=== PATIENT | male | born 1990 | race Two or more races ===

== ENCOUNTER 2016-10-28 12:59 | Emergency (ER) | payer MEDICAID, OTHER ==
[~2016-10-28] VITALS: Ht 172.7 cm; Wt 74.7 kg
[2016-10-28 13:06] VITALS: BP 104/62; PULSE 79; RESP 16; TEMP 98.3; O2SAT 94
--- NOTE | 2016-10-28 13:56 | PD ---
HPI Chief Complaint: GI Complaint Time Seen by Provider: 13:52 Travel History International Travel<30 days: No Contact w/Intl Traveler<30days: No Traveled to known affect area: No History of Present Illness HPI Patient presents with 3-4 days of nausea vomiting and diarrhea. No sick contacts. Denies blood per stool or emesis. Denies any recent travel, antibiotics, camping or new foods. Denies any chest pain shortness of breath or urinary symptoms. Denies fever. PFSH Past Medical History Asthma: Yes Bipolar Disorder: Yes Diminished Hearing: No Influenza Vaccination: Yes Past Surgical History Surgical History: No Previous Surgery Ear Surgery: Yes (TUBES IN EARS ) Other Surgery: Yes (PULMONARY SURGERY AN INFANT, ADENOIDECTOMY ) Social History Alcohol Use: Yes (OCCASIONALLY ) Tobacco Use: Yes (1+ PPD ) Substance Use: Yes Allergies-Medications (Allergen,Severity, Reaction): Coded Allergies: No Known Allergies (Verified , 10/28/16) Reported Meds & Prescriptions Reported Meds & Active Scripts Active Zofran Odt (Ondansetron Odt) 4 Mg Tab 4 Mg SL Q6HR PRN Levsin (Hyoscyamine Sulfate) 0.125 Mg Tab 0.125 Mg PO Q4H PRN Review of Systems General / Constitutional: No: Fever Eyes: No: Visual changes HENT: No: Headaches Cardiovascular: No: Chest Pain or Discomfort Respiratory: No: Shortness of Breath Gastrointestinal: Positive: Nausea, Vomiting, Diarrhea, No: Abdominal Pain Genitourinary: No: Dysuria Musculoskeletal: No: Pain Skin: No Rash Neurologic: No: Weakness Psychiatric: No: Depression Endocrine: No: Polydipsia Hematologic/Lymphatic: No: Easy Bruising Physical Exam Narrative GENERAL: Well-nourished, well-developed patient. SKIN: Focused skin assessment warm/dry. HEAD: Normocephalic. EYES: No scleral icterus. No injection or drainage. NECK: Supple, trachea midline. No JVD or lymphadenopathy. CARDIOVASCULAR: Regular rate and rhythm without murmurs, gallops, or rubs. RESPIRATORY: Breath sounds equal bilaterally. No accessory muscle use. GASTROINTESTINAL: Abdomen soft, non-tender, nondistended. MUSCULOSKELETAL: No cyanosis, or edema. BACK: Nontender without obvious deformity. No CVA tenderness. Data Data Last Documented VS Vital Signs Date Time Temp Pulse Resp B/P Pulse Ox O2 Delivery O2 Flow Rate FiO2 10/28/16 13:06 98.3 79 16 104/62 94 Orders Dicyclomine Inj (Bentyl Inj) (10/28/16 14:00) Ondansetron Odt (Zofran Odt) (10/28/16 14:00) [facility] Medical Decision Making Medical Screen Exam Complete: Yes Emergency Medical Condition: Yes Differential Diagnosis Gastroenteritis, gastritis, colitis, food poisoning, C. difficile Narrative Course Assessment and plan discussed with patient at bedside. Provided Bentyl and Zofran. Tolerated fluid challenge. Diagnosis Primary Impression: Gastroenteritis Patient Instructions: General Instructions Additional Instructions: Rest fluids and a bland BRAT high-fiber diet, follow-up with PCP, work note for today and tomorrow please Med/Other Pt SpecificInfo: Prescription(s) given Scripts Ondansetron Odt (Zofran Odt)4 Mg Tab4 Mg SL Q6HR PRN (Nausea/Vomiting) #20 TAB Ref 0 Prov:Oneil Ramos MD 10/28/16 Hyoscyamine (Levsin)0.125 Mg Tab0.125 Mg PO Q4H PRN (diarrhea) #20 TAB Ref 0 Prov:Oneil Ramos MD 10/28/16 Disposition: 01 DISCHARGE HOME Condition: Good Oneil Ramos MD Oct 28, 2016 13:56
[2016-10-28] MEDS ORDERED: DICYCLOMINE HCL 20 MG/2 ML VIAL IM ONE (14:00)
[2016-10-28] MEDS ORDERED: ONDANSETRON ODT 4 MG TAB PO ONE (14:00)
[2016-10-28] MEDS ORDERED: ZOFR4TAB3 SL (14:40)
[2016-10-28] MEDS ORDERED: LEVS0.123 PO (14:40)
[2016-10-28 14:58] VITALS: BP 120/76
== END 2016-10-28 14:59 | disposition home or self-care (01) ==
LOC: PHED 12:59
DX: K52.9 Noninfective gastroenteritis and colitis, unspecified (principal); J45.909 Unspecified asthma, uncomplicated; F17.210 Nicotine dependence, cigarettes, uncomplicated
CPT/HCPCS: 96372; 99284; J0500

== ENCOUNTER 2017-02-14 10:24 | Emergency (ER) | payer SELFPAY ==
[~2017-02-14] VITALS: Ht 175.3 cm; Wt 72.5 kg
[2017-02-14 10:24] VITALS: BP 118/69; PULSE 89; RESP 20; TEMP 98.6; O2SAT 92
[~2017-02-14 10:24] MED LIST: LEVS0.123 PO; ZOFR4TAB3 SL
[2017-02-14] MEDS ORDERED: VENTAER INH (10:39)
[2017-02-14] MEDS ORDERED: predniSONE 50 MG TAB PO ONE (10:45)
--- NOTE | 2017-02-14 10:55 | PD ---
HPI Chief Complaint: Respiratory Symptoms Time Seen by Provider: 10:34 Travel History International Travel<30 days: No Contact w/Intl Traveler<30days: No Traveled to known affect area: No History of Present Illness HPI This is a 26-year-old male who has a history of asthma who presents to the emergency department with wheezing, shortness of breath and difficulty taking a deep breath, constant, worsening over the past several days. He has a history of asthma which stems from him inhaling amniotic fluid when he was a baby. He says he was hospitalized frequently as a child but not as an adult. He was seen yesterday at [facility] where he received some bronchodilator treatments and was discharged with a prescription for prednisone. He was unable to fill it because he gets his paycheck today but he did receive prednisone they are yesterday. He says he works at a [employer] and he is having difficulty working because he can get through a sentence without needing to breathe. He does smoke intermittently. He denies any fevers or chills and denies any rhinorrhea. He says he feels like he has a productive cough but can' t get it out. PFSH Past Medical History Asthma: Yes Bipolar Disorder: Yes Diabetes: No Diminished Hearing: No Respiratory: Yes (asthma) Tetanus Vaccination: > 5 Years Influenza Vaccination: Yes Past Surgical History Ear Surgery: Yes (TUBES IN EARS ) Other Surgery: Yes (PULMONARY SURGERY AN INFANT, ADENOIDECTOMY ) Social History Alcohol Use: Yes (OCCASIONALLY ) Tobacco Use: Yes (1+ PPD ) Substance Use: Yes Allergies-Medications (Allergen,Severity, Reaction): Coded Allergies: No Known Allergies (Verified , 02/14/17) Reported Meds & Prescriptions Reported Meds & Active Scripts Active Reported Ventolin Hfa 18 GM Inh (Albuterol Sulfate) 90 Mcg/Act Aer 2 Puff INH Q4H PRN Review of Systems Except as stated in HPI: all other systems reviewed are Neg Physical Exam Narrative GENERAL:Well appearing, no acute distress SKIN: Focused skin assessment warm and dry. HEAD: Atraumatic. Normocephalic. EYES: Pupils equal and round. No injection or drainage. ENT: Moist mucous membranes NECK: Trachea midline. CARDIOVASCULAR: Regular rate and rhythm. No murmur appreciated. RESPIRATORY: Diffuse wheezing, speaking full sentences. GASTROINTESTINAL: Abdomen soft, non-tender, nondistended. MUSCULOSKELETAL: No obvious deformities. NEUROLOGICAL: Awake and alert. No obvious cranial nerve deficits. Moving all extremities PSYCHIATRIC: Appropriate mood and affect; insight and judgment normal. Data Data Last Documented VS Vital Signs Date Time Temp Pulse Resp B/P Pulse Ox O2 Delivery O2 Flow Rate FiO2 02/14/17 10:30 85 20 92 Room Air 02/14/17 10:24 98.6 118/69 Orders Prednisone (Deltasone) (02/14/17 10:45) Albuterol Neb (Albuterol Neb) (02/14/17 10:45) Spacer / Device For Mdi (Spacer / Device (02/14/17 11:15) MDM Medical Decision Making Medical Screen Exam Complete: Yes Emergency Medical Condition: Yes Interpretation(s) Afebrile, no tachycardia, normotensive Differential Diagnosis Acute asthma exacerbation, pneumonia, status asthmaticus Narrative Course This is a 26-year-old male who presents to the emergency department with wheezing and shortness of breath. He has a history of asthma. He was placed on a monitor. Oxygen saturation was between 89 and 92%. He was given serial bronchodilator treatments and prednisone. His symptoms improved significantly and when I reassessed him he was no longer wheezing. I think he's safe for discharge. He was given a spacer here in the emergency department and urged to fill his prednisone prescription. He was instructed to return to the hospital if he feels worse. Diagnosis Primary Impression: Acute asthma exacerbation Qualified Code: J45.41 - Moderate persistent asthma with acute exacerbation Patient Instructions: General Instructions Departure Forms: Tests/Procedures, Work Release Enter return to work date: Feb 18, 2017 Additional Instructions: If you develop severe shortness of breath, chest pain, or difficulty breathing return to the emergency department. Use albuterol every 4 hours for the next 2 days. Then use as needed for wheezing. Complete your course of steroids. Follow up with your primary care physician in 2-3 days if your symptoms have not improved. Med/Other Pt SpecificInfo: No Change to Meds Disposition: 01 DISCHARGE HOME Condition: Stable Gabriela Morales MD Feb 14, 2017 10:55
[2017-02-14] MEDS: RESP: ALBUTEROL 2.5 MG/3 ML NEB (SCH) INH ×2 (10:57→10:58)
[2017-02-14] MEDS ORDERED: SPACER/DEVICE FOR MDI INH SCH (11:15)
== END 2017-02-14 12:23 | disposition home or self-care (01) ==
LOC: NEPD 10:24
DX: J45.41 Moderate persistent asthma with (acute) exacerbation (principal); F17.200 Nicotine dependence, unspecified, uncomplicated; Z87.09 Personal history of other diseases of the respiratory system; Z86.59 Personal history of other mental and behavioral disorders
CPT/HCPCS: 94640; 94664; 99283; J7512; J7613

== ENCOUNTER 2017-05-08 10:37 | Emergency (ER) | payer SELFPAY ==
[~2017-05-08] VITALS: Ht 175.3 cm; Wt 70.0 kg
[~2017-05-08 10:37] MED LIST changes: -LEVS0.123 PO; +VENTAER INH; -ZOFR4TAB3 SL
[2017-05-08 10:38] VITALS: BP 141/91; PULSE 71; RESP 18; TEMP 98.8; O2SAT 98
[2017-05-08] MEDS ORDERED: LITH600C PO (11:16)
--- NOTE | 2017-05-08 11:25 | PD ---
HPI Chief Complaint: GI Complaint Time Seen by Provider: 11:24 Travel History International Travel<30 days: No Contact w/Intl Traveler<30days: No Traveled to known affect area: No History of Present Illness HPI 26 YO M with PMH of bipolar presents to the ED for evaluation of 1 week history of intermittent, crampy, 5/10 right-sided flank and abdominal pain with accompanying nausea, vomiting and loose stools. Patient denies fever or chills. Pain is not worsened by eating. No alleviating factors reported. He endorses a few episodes of vomiting with maroon streaking. Denies hematochezia , Sachi, Also complains of zhen colored urine without dysuria. Patient states that he has a history of GI bleed at age 7. He underwent panendoscopy at that time but has never had any further problems. He endorses compliance with daily [place]. PFSH Past Medical History Asthma: Yes Bipolar Disorder: Yes Diabetes: Yes Patient Takes Glucophage: No Diminished Hearing: No Respiratory: Yes (ASTHMA) Past Surgical History Ear Surgery: Yes (TUBES IN EARS ) Other Surgery: Yes (PULMONARY SURGERY AN INFANT, ADENOIDECTOMY ) Social History Alcohol Use: Yes (OCCASIONALLY ) Tobacco Use: Yes (1+ PPD ) Substance Use: Yes Allergies-Medications (Allergen,Severity, Reaction): Coded Allergies: No Known Allergies (Verified Adverse Reaction, Unknown, 05/08/17) Reported Meds & Prescriptions Reported Meds & Active Scripts Active Zofran Odt (Ondansetron Odt) 4 Mg Tab 4 Mg SL Q12HR PRN Reported [place] Carbonate 600 Mg Cap 600 Mg PO TID Ventolin Hfa 18 GM Inh (Albuterol Sulfate) 90 Mcg/Act Aer 2 Puff INH Q4H PRN Review of Systems Except as stated in HPI: all other systems reviewed are Neg Physical Exam Narrative GENERAL: Well-nourished, well-developed thin white male in no acute distress. SKIN: Focused skin assessment warm/dry. HEAD: Normocephalic. EYES: No scleral icterus. No injection or drainage. NECK: Supple, trachea midline. No JVD or lymphadenopathy. CARDIOVASCULAR: Regular rate and rhythm without murmurs, gallops, or rubs. RESPIRATORY: Breath sounds clear and equal bilaterally. No accessory muscle use. GASTROINTESTINAL: Abdomen soft, nondistended. Tender to palpation in the right flank, RUQ and RLQ. Steve's sign negative. Rovsing sign negative. Psoas sign negative. Hypoactive bowel sounds. RECTAL EXAM: No masses or tenderness, stool is brown. Guaiac positive. MUSCULOSKELETAL: No cyanosis, or edema. BACK: Nontender without obvious deformity. Positive right-sided CVA tenderness. Data Data Last Documented VS Vital Signs Date Time Temp Pulse Resp B/P (MAP) Pulse Ox O2 Delivery O2 Flow Rate FiO2 05/08/17 15:31 05/08/17 12:24 Room Air 05/08/17 11:12 18 05/08/17 10:38 98.8 71 98 Orders Orders Complete Blood Count With Diff (05/08/17 11:43) Comprehensive Metabolic Panel (05/08/17 11:43) Lipase (05/08/17 11:43) Lactic Acid (05/08/17 11:43) Prothrombin Time / Inr (Pt) (05/08/17 11:43) Act Partial Throm Time (Ptt) (05/08/17 11:43) Urinalysis - C+S If Indicated (05/08/17 11:43) Ct Abd/Pel W Iv Contrast(Rout) (05/08/17 11:43) Iv Access Insert/Monitor (05/08/17 11:43) Ecg Monitoring (05/08/17 11:43) Oximetry (05/08/17 11:43) Morphine Inj (Morphine Inj) (05/08/17 11:45) Ondansetron Inj (Zofran Inj) (05/08/17 11:45) Sodium Chlor 0.9% 1000 Ml Inj (Ns 1000 M (05/08/17 11:43) Sodium Chloride 0.9% Flush (Ns Flush) (05/08/17 11:45) Iohexol 350 Inj (Omnipaque 350 Inj) (05/08/17 13:28) Ed Discharge Order (05/08/17 14:56) Labs Laboratory Tests Test 05/08/17 12:00 05/08/17 12:40 White Blood Count 8.1 TH/MM3 Red Blood Count 5.27 MIL/MM3 Hemoglobin 17.8 GM/DL Hematocrit 52.1 % Mean Corpuscular Volume 98.9 FL Mean Corpuscular Hemoglobin 33.8 PG Mean Corpuscular Hemoglobin Concent 34.1 % Red Cell Distribution Width 12.4 % Platelet Count 150 TH/MM3 Mean Platelet Volume 10.1 FL Neutrophils (%) (Auto) 68.4 % Lymphocytes (%) (Auto) 22.1 % Monocytes (%) (Auto) 8.6 % Eosinophils (%) (Auto) 0.5 % Basophils (%) (Auto) 0.4 % Neutrophils # (Auto) 5.5 TH/MM3 Lymphocytes # (Auto) 1.8 TH/MM3 Monocytes # (Auto) 0.7 TH/MM3 Eosinophils # (Auto) 0.0 TH/MM3 Basophils # (Auto) 0.0 TH/MM3 CBC Comment DIFF FINAL Differential Comment Prothrombin Time 10.8 SEC Prothromb Time International Ratio 1.0 RATIO Activated Partial Thromboplast Time 26.9 SEC Blood Urea Nitrogen 12 MG/DL Creatinine 0.87 MG/DL Random Glucose 85 MG/DL Total Protein 8.4 GM/DL Albumin 4.5 GM/DL Calcium Level 9.4 MG/DL Alkaline Phosphatase 80 U/L Aspartate Amino Transf (AST/SGOT) 21 U/L Alanine Aminotransferase (ALT/SGPT) 20 U/L Total Bilirubin 1.4 MG/DL Sodium Level 137 MEQ/L Potassium Level 4.3 MEQ/L Chloride Level 104 MEQ/L Carbon Dioxide Level 25.8 MEQ/L Anion Gap 7 MEQ/L Estimat Glomerular Filtration Rate 106 ML/MIN Lactic Acid Level 0.8 mmol/L Lipase 92 U/L Urine Color YELLOW Urine Turbidity CLEAR Urine pH 6.5 Urine Specific [place] 1.026 Urine Protein TRACE mg/dL Urine Glucose (UA) NEG mg/dL Urine Ketones 40 mg/dL Urine Occult Blood NEG Urine Nitrite NEG Urine Bilirubin NEG Urine Urobilinogen 4.0 MG/DL Urine Leukocyte Esterase NEG Urine RBC LESS THAN 1 /hpf Urine WBC 1 /hpf Urine Squamous Epithelial Cells <1 /hpf Urine Mucus FEW /lpf Microscopic Urinalysis Comment CULT NOT INDICATED MDM Medical Decision Making Medical Screen Exam Complete: Yes Emergency Medical Condition: Yes Differential Diagnosis Nephroureterolithiasis versus cholecystitis versus appendicitis versus GI bleed versus gastroenteritis versus other Narrative Course 26 YO M presents to the ED for evaluation of 1 week history of intermittent, crampy, 5/10 right-sided flank and abdominal pain with accompanying nausea, vomiting and loose stools. Endorses a few episodes vomiting with maroon streaking. Patient denies fever or chills, hematochezia, melena, Also complains of zhen colored urine without dysuria. Patient states that he has a history of GI bleed at age 7. He underwent panendoscopy at that time, normal. Patient is afebrile, nontoxic appearing. On exam he does have tenderness in the right upper and lower quadrant as well as the right flank. Guaiac negative on rectal exam. IV was established. The patient was administered 4 mg morphine, 4 mg Zofran and 1 L normal saline IV. CBC: The CBC 8.1. Hemoglobin 17.8. Hematocrit 15.1. CMP: Bilirubin 1.4. AST 21, ALT 20. UA: No culture indicated Lactic acid: 0.8 Lipase: 92 CT abdomen and pelvis: No acute inflammatory process per radiology read. I discussed the results of the workup with the patient. Patient was reassured by the results. I provided a few doses of Zofran ODT, cautioned him to take sparingly and only as needed. We discussed reasons to return to the ED. Patient is encouraged to follow up with his primary care provider and possibly GI specialist as indicated. He is agreeable to the care plan. He is stable and discharged home. HemaPrompt Point of Care Internal Pos. & Neg. Controls: Passed Fecal Specimen Occult Blood: Negative Diagnosis Primary Impression: Right sided abdominal pain Referrals: Primary Care Physician Patient Instructions: Abdominal Pain (ED), Diet for Stomach Ulcers and Gastritis (ED), General Instructions Additional Instructions: Rest, hydrate. Resume normal, gentle activities as tolerated. Resume at home medications as prescribed. Take Zofran as prescribed. Follow up with your primary care provider for further evaluation. Return to the ED for worsening symptoms or any urgent or emergent medical condition. Med/Other Pt SpecificInfo: Prescription(s) given Scripts Ondansetron Odt (Zofran Odt) 4 Mg Tab 4 MG SL Q12HR Y for Nausea/Vomiting, #5 TAB 0 Refills Prov: Robert Marie MD 05/08/17 Disposition: 01 DISCHARGE HOME Condition: Stable Susan Herrera May 08, 2017 11:25
[2017-05-08] MEDS ORDERED: SODIUM CHLOR 0.9% 1000 ML INJ 1,000 ML IV SCH (11:43)
[2017-05-08] MEDS ORDERED: ONDANSETRON HCL 4 MG/2 ML VIAL IVP ONE (11:45)
[2017-05-08] MEDS ORDERED: SODIUM CHLORIDE 0.9% FLUSH 10 ML FLUSH IV FLUSH PRN (11:45)
[2017-05-08] MEDS ORDERED: MORPHINE SULFATE 4 MG/ML INJ IV PUSH ONE (11:45)
[2017-05-08 13:24] LABS: AUTOMATED NEUTROPHIL # 5.5 TH/MM3 (1.8-7.7); BASOPHIL % 0.4 % (0.0-2.0); EOSINOPHIL % 0.5 % (0.0-4.0); HEMATOCRIT 52.1 % (39.0-51.0); HEMO FLAGS DIFF FINAL; LYMPH % 22.1 % (9.0-44.0); LYMPHOCYTE # 1.8 TH/MM3 (1.0-4.8); MEAN CELL VOLUME 98.9 FL (80.0-100.0); MEAN CORPUSCULAR HEMOGLOBIN 33.8 PG (27.0-34.0); MEAN CORPUSCULAR HGB CONC 34.1 % (32.0-36.0); MONO % 8.6 % (0.0-8.0); NEUT % 68.4 % (16.0-70.0); PLATELET COUNT 150 TH/MM3 (150-450); RED BLOOD COUNT 5.27 MIL/MM3 (4.50-5.90); RED CELL DISTRIBUTION WIDTH 12.4 % (11.6-17.2); WHITE BLOOD COUNT 8.1 TH/MM3 (4.0-11.0)
[2017-05-08] MEDS ORDERED: IOHEXOL 350 MG/ML 10 ML VIAL (for RAD DIAG) IVCONTRAST ONE (13:28)
[2017-05-08 13:49] LABS: APTT (PATIENT) 26.9 SEC (24.3-30.1); PROTHROMBIN TIME - PATIENT 10.8 SEC (9.8-11.6)
[2017-05-08 13:50] LABS: ALT (GPT) 20 U/L (12-78); ANION GAP 7 MEQ/L (5-15); AST (GOT) 21 U/L (15-37); BICARBONATE 25.8 MEQ/L (21.0-32.0); BLOOD UREA NITROGEN 12 MG/DL (7-18); CHLORIDE 104 MEQ/L (98-107); GLOMERULAR FILTRATION RATE 106 ML/MIN (>89); POTASSIUM 4.3 MEQ/L (3.5-5.1); SODIUM (NA) 137 MEQ/L (136-145)
[2017-05-08 13:53] LABS: ALKALINE PHOSPHATASE 80 U/L (45-117); TOTAL BILIRUBIN ADULT 1.4 MG/DL (0.2-1.0)
--- NOTE | 2017-05-08 14:06 | RADRPT ---
EXAM DATE/TIME: 05/08/2017 13:24 [facility] COMPARISON: No previous studies available for comparison. INDICATIONS : Abdominal pain, with nausea vomiting and diarrhea. IV CONTRAST: 96 cc Omnipaque 350 (iohexol) IV ORAL CONTRAST: No oral contrast ingested. RADIATION DOSE: 4.89 CTDIvol (mGy) MEDICAL HISTORY : None Blood in stool, emesis. SURGICAL HISTORY : None. ENCOUNTER: Initial ACUITY: 1 day PAIN SCALE: 5/10 LOCATION: Right middle abdominal. TECHNIQUE: Volumetric scanning of the abdomen and pelvis was performed. Using automated exposure control and ad justment of the mA and/or kV according to patient size, radiation dose was kept as low as reasonably achievable to obtain optimal diagnostic quality images. DICOM format image data is available electro nically for review and comparison. FINDINGS: LOWER LUNGS: The visualized lower lungs are clear. LIVER: Homogeneous density without lesion. There is no dilation of the biliary tree. No calcified gallston es. SPLEEN: Normal size with subcentimeter low-density. PANCREAS: Within normal limits. KIDNEYS: Normal in size and shape. There is no mass, stone or hydronephrosis. ADRENAL GLANDS: Within normal limits. VASCULAR: There is no aortic aneurysm. BOWEL/MESENTERY: The stomach, small bowel, and colon demonstrate no acute abnormality. There is no free intraperitone al air or fluid. ABDOMINAL WALL: Within normal limits. RETROPERITONEUM: There is no lymphadenopathy. BLADDER: No wall thickening or mass. REPRODUCTIVE: Within normal limits. INGUINAL: There is no lymphadenopathy or hernia. MUSCULOSKELETAL: Within normal limits for patient age. CONCLUSION: No acute inflammatory process. Benign-appearing subcentimeter splenic low density. Inocente Hua MD on May 08, 2017 at 13:53 Board Certified Radiologist. This report was verified electronically.
[2017-05-08 14:43] LABS: BLOOD, URINE NEG (NEG); COMMENT (UR) CULT NOT INDICATED; CULTURE IF INDICATED CULT NOT INDICATED; GLUCOSE,URINE NEG (NEG); KETONE, URINE 40 mg/dL (NEG); MUCUS URINE FEW /lpf (OCC); NITRITE,URINE NEG (NEG); PH, URINE 6.5 (5.0-8.5); SQUAMOUS EPITHELIAL CELL URINE <1 /hpf (0-5); URINE COLOR YELLOW (YELLW/STRAW)
[2017-05-08] MEDS ORDERED: ZOFR4TAB3 SL ×2 (14:52→14:55)
--- NOTE | 2017-05-08 15:19 | PD ---
Data Data Last Documented VS Vital Signs Date Time Temp Pulse Resp B/P (MAP) Pulse Ox O2 Delivery O2 Flow Rate FiO2 05/08/17 12:24 (108) Room Air 05/08/17 11:12 18 05/08/17 10:38 98.8 71 98 Orders Orders Complete Blood Count With Diff (05/08/17 11:43) Comprehensive Metabolic Panel (05/08/17 11:43) Lipase (05/08/17 11:43) Lactic Acid (05/08/17 11:43) Prothrombin Time / Inr (Pt) (05/08/17 11:43) Act Partial Throm Time (Ptt) (05/08/17 11:43) Urinalysis - C+S If Indicated (05/08/17 11:43) Ct Abd/Pel W Iv Contrast(Rout) (05/08/17 11:43) Iv Access Insert/Monitor (05/08/17 11:43) Ecg Monitoring (05/08/17 11:43) Oximetry (05/08/17 11:43) Morphine Inj (Morphine Inj) (05/08/17 11:45) Ondansetron Inj (Zofran Inj) (05/08/17 11:45) Sodium Chlor 0.9% 1000 Ml Inj (Ns 1000 M (05/08/17 11:43) Sodium Chloride 0.9% Flush (Ns Flush) (05/08/17 11:45) Iohexol 350 Inj (Omnipaque 350 Inj) (05/08/17 13:28) Ed Discharge Order (05/08/17 14:56) Labs Laboratory Tests Test 05/08/17 12:00 05/08/17 12:40 White Blood Count 8.1 TH/MM3 Red Blood Count 5.27 MIL/MM3 Hemoglobin 17.8 GM/DL Hematocrit 52.1 % Mean Corpuscular Volume 98.9 FL Mean Corpuscular Hemoglobin 33.8 PG Mean Corpuscular Hemoglobin Concent 34.1 % Red Cell Distribution Width 12.4 % Platelet Count 150 TH/MM3 Mean Platelet Volume 10.1 FL Neutrophils (%) (Auto) 68.4 % Lymphocytes (%) (Auto) 22.1 % Monocytes (%) (Auto) 8.6 % Eosinophils (%) (Auto) 0.5 % Basophils (%) (Auto) 0.4 % Neutrophils # (Auto) 5.5 TH/MM3 Lymphocytes # (Auto) 1.8 TH/MM3 Monocytes # (Auto) 0.7 TH/MM3 Eosinophils # (Auto) 0.0 TH/MM3 Basophils # (Auto) 0.0 TH/MM3 CBC Comment DIFF FINAL Differential Comment Prothrombin Time 10.8 SEC Prothromb Time International Ratio 1.0 RATIO Activated Partial Thromboplast Time 26.9 SEC Blood Urea Nitrogen 12 MG/DL Creatinine 0.87 MG/DL Random Glucose 85 MG/DL Total Protein 8.4 GM/DL Albumin 4.5 GM/DL Calcium Level 9.4 MG/DL Alkaline Phosphatase 80 U/L Aspartate Amino Transf (AST/SGOT) 21 U/L Alanine Aminotransferase (ALT/SGPT) 20 U/L Total Bilirubin 1.4 MG/DL Sodium Level 137 MEQ/L Potassium Level 4.3 MEQ/L Chloride Level 104 MEQ/L Carbon Dioxide Level 25.8 MEQ/L Anion Gap 7 MEQ/L Estimat Glomerular Filtration Rate 106 ML/MIN Lactic Acid Level 0.8 mmol/L Lipase 92 U/L Urine Color YELLOW Urine Turbidity CLEAR Urine pH 6.5 Urine Specific [place] 1.026 Urine Protein TRACE mg/dL Urine Glucose (UA) NEG mg/dL Urine Ketones 40 mg/dL Urine Occult Blood NEG Urine Nitrite NEG Urine Bilirubin NEG Urine Urobilinogen 4.0 MG/DL Urine Leukocyte Esterase NEG Urine RBC LESS THAN 1 /hpf Urine WBC 1 /hpf Urine Squamous Epithelial Cells <1 /hpf Urine Mucus FEW /lpf Microscopic Urinalysis Comment CULT NOT INDICATED MDM Supervised Visit with [facility]: Yes Narrative Course The history, exam, and medical decision-making in the associated mid-level provider note were completed with my assistance. I reviewed and agree with the findings presented. I attest that I had a [id number] encounter with the patient on the same day, and personally performed and documented my assessment and findings in the medical record. *My assessment and Findings: 26-year-old man with right sided abdominal pain. Mild right sided tenderness. Associated with nausea vomiting diarrhea, he reports some maroon-colored blood in his emesis as well. History of GI bleed in the past. Looks well. Despite the tenderness is abdomen several fairly benign. Workups unremarkable. Recommend supportive treatment and outpatient follow-up. Diagnosis Primary Impression: Right sided abdominal pain Referrals: Primary Care Physician Patient Instructions: General Instructions, Diet for Stomach Ulcers and Gastritis (ED), Abdominal Pain (ED) Additional Instruction: Rest, hydrate. Resume normal, gentle activities as tolerated. Resume at home medications as prescribed. Take Zofran as prescribed. Follow up with your primary care provider for further evaluation. Return to the ED for worsening symptoms or any urgent or emergent medical condition. Scripts Ondansetron Odt (Zofran Odt) 4 Mg Tab 4 MG SL Q12HR Y for Nausea/Vomiting, #5 TAB 0 Refills Prov: Robert Marie MD 05/08/17 Disposition: 01 DISCHARGE HOME Condition: Stable Robert Marie MD May 08, 2017 15:19
== END 2017-05-08 15:40 | disposition home or self-care (01) ==
LOC: NEPC 10:37
DX: R10.31 Right lower quadrant pain (principal); R11.2 Nausea with vomiting, unspecified; J45.909 Unspecified asthma, uncomplicated; F31.9 Bipolar disorder, unspecified; E11.9 Type 2 diabetes mellitus without complications; Z72.0 Tobacco use
CPT/HCPCS: 74177; 80053; 81001; 83605; 83690; 85025; 85610; 85730; 96361; 96374; 96375; 99285; J2270; J2405; J7030; Q9967